=== PATIENT | male | born 1960 | race Caucasian/White ===

== ENCOUNTER 2017-02-25 13:17 | Inpatient (IN) | END 2017-03-05 22:20 | DRG 455 ==

== ENCOUNTER 2017-03-05 22:33 | Inpatient (IN) | END 2017-03-12 11:00 | disposition home health service (06) | DRG 561 ==

== ENCOUNTER 2017-03-25 14:13 | Emergency (ER) | END 2017-03-25 19:35 | disposition home or self-care (01) ==